=== PATIENT | male | born 1965 | race Caucasian/White ===

== ENCOUNTER 2020-12-25 09:14 | Emergency (ER) | payer SELFPAY ==
[2020-12-25 09:21] VITALS: BP 131/84; PULSE 82; RESP 16; TEMP 36.6; O2SAT 97; BMI 30.8
--- NOTE | 2020-12-25 12:09 | EDS_ITS ---
HPI History of Present Illness Chief Complaint: Fall Narrative Narrative: Patient is a 55-year-old male who states he was at work today when he was walking and tripped over a pallet that was on the ground. He states he fell from a standing position onto his right side. He reports striking his head but denies any loss of consciousness or blood thinner use. He states he sustained a abrasion/laceration to the upper eyelid/forehead region. He denies any other trauma and states there is been no sensitivity to light headache change in vision nausea or vomiting. However with the injury occurring at work he presents for evaluation [facility] Allergy/AdvReac Type Severity Reaction Status Date / Time No Known Allergies Allergy Verified 12/25/20 09:24 ROS ROS ED Constitutional Constitutional ED: Denies chills or fever(s) Eyes Eyes: Denies change in vision ENT ENT ED: Denies sore throat Cardiovascular Cardiovascular: Denies chest pain Respiratory/Chest Respiratory/Chest: Denies cough or dyspnea Gastrointestinal Gastrointestinal: Denies abdominal pain, diarrhea, nausea or vomiting Genitourinary Genitourinary ED: Denies dysuria Musculoskeletal Musculoskeletal: Denies myalgias Integumentary Reports Abrasions; Denies rash Neurologic Neurologic: Denies headache(s) Hematologic/Lymphatic Hematologic/Lymphatic: Denies easy bleeding or easy bruising EXAM Physical Exam Const Vital Signs: 12/25/20 09:21 Temperature 97.9 F Temperature Source Temporal Pulse Rate 82 Respiratory Rate 16 Blood Pressure 131/84 H Blood Pressure Mean 99 Pulse Ox 97 Oxygen Delivery Method Room Air Positive well nourished and well developed General Appearance ED: well developed HEENT Reports moist mucous membranes HEENT Narrative: Patient has soft tissue swelling to the right section of the forehead as well as the right side of the face/orbit. There is a linear 1.5 cm dermal layer laceration to the upper eyelid region with no active bleeding and no foreign body. Patient also has a superficial/dermal layer abrasion to the inner aspect of the right ear. Otherwise no signs of depressed or basilar skull fracture Eyes PERRL and EOMs intact bilaterally Neck supple Neck Narrative: No midline pain on palpation no bony deformity or step-off of the cervical spine Resp normal respiratory effort and clear to auscultation bilaterally Cardio regular rate and regular rhythm GI normal to inspection, nondistended, normoactive bowel sounds, non-tender and non-distended Auscultation: normoactive bowel sounds Palpation: soft Back/Spine Back/Spine Narrative: No bony deformity or step-off of the thoracic or lumbar spine no midline pain with palpation Extremity normal to inspection Neuro oriented x3 and CN's II-XII intact bilaterally Sensorium / Orientation: alert Psych mental status grossly normal Skin Skin Narrative: Soft tissue swelling with superficial abrasions/lacerations to the upper eyelid and right ear as documented above MDM MDM MDM Narrative Medical decision making narrative: Patient presented with a mechanical fall therefore there is no need for cardiac or syncopal work-up. I offered him a head CT based on the trauma and he states he does not want one at this time. The patient reports his tetanus status is under 5 years as well. The wounds are superficial in nature and therefore they were cleaned with chlorhexidine and then closed with Dermabond. On reevaluation patient has been resting comfortably and he has no change in neurologic status to suggest underlying brain bleed or signs concussion and therefore will be discharged at this time Discharge Plan Triage Chief Complaint: Fall ED Provider: Waqar Everett Dx/Rx/DC Orders Clinical Impression: Closed head injury, Facial laceration, Accidental fall Instructions: ED Laceration, Chin, Skin Glue Repair, ED Head Injury (Adult) Referrals: [facility] [GROUP OF PHYSICIANS] - Disposition Disposition: Home, Self Care
[2020-12-25 12:14] VITALS: RESP 18
[2020-12-25 12:30] VITALS: RESP 18
== END 2020-12-25 12:31 | disposition home or self-care (01) ==
LOC: ED 12:22
PROVIDERS: Emergency Provider Emergency Medicine
DX: S01.111A Laceration without foreign body of right eyelid and periocular area, initial encounter (principal); S00.411A Abrasion of right ear, initial encounter; W18.09XA Striking against other object with subsequent fall, initial encounter; Y93.01 Activity, walking, marching and hiking; Y92.9 Unspecified place or not applicable; Y99.0 Civilian activity done for income or pay
CPT/HCPCS: 12011; 99284

== ENCOUNTER 2022-07-18 08:18 | Emergency (ER) | payer OTHER, SELFPAY ==
[2022-07-18 08:20] VITALS: BP 126/81; PULSE 72; RESP 16; TEMP 35.7; O2SAT 100; BMI 30.9
--- NOTE | 2022-07-18 08:27 | CT_ITS ---
STUDY: CT BRAIN WITHOUT CONTRAST REASON FOR EXAM: Male, 57 years old. Injury. Altered mental status. RADIATION DOSAGE (If Supplied By Facility): CTDIvol = ( 44.99 ) mGy, DLP = ( 863.60 ) mGycm TECHNIQUE: Transaxial CT imaging of the brain was performed without administration of intravenous contrast material. Individualized dose optimization techniques were used for this CT. COMPARISON: None. FINDINGS: There is no acute bleed or infarct. There are normal white matter tracts. The ventricles are normal in configuration. There is no hydrocephalus. The visualized paranasal sinuses are clear. The mastoid air cells are well aerated. There is no skull fracture. CT/Brain/Head without Contrast IMPRESSION: No acute intracranial abnormality. Electronically Signed: Lai Be MD at 10:01 EDT ,
--- NOTE | 2022-07-18 08:29 | EX.ED.GENINJ ---
HPI History of Present Illness Chief Complaint: Fall Detail of Chief Complaint: Fall with injury to right parietal and lateral right orbit Informant: patient and EMS Onset/Context/Timing Onset: Today Mechanism/Context: Fall Location: Inferior right brow laterally and right parietal area Current Severity: Read HPI narrative Maximum Severity: Documented HPI narrative Worsened by: Admits to alcohol use Relieved by: Not applicable Associated Symptoms Associated Symptoms: Negative for Parasthesias, Weakness, Loss of function, Inability to ambulate, Loss of consciousness or Amnesia Narrative Narrative: Patient is a 57-year-old male. He is not a reliable informant. Reportedly he was checking into the [employer] hotel when he fell. He struck his head against a counter. Verified that he did fall checking into the hotel. Apparently this is his normal weekend routine. Patient states he finished work yesterday at 4. He is covered with grass stains and black lisa on his jeans and on his legs. His socks and shoes are soaked. Patient states this is not abnormal. He does admit to drinking. Last tetanus is unknown. He does complain of head pain but not headache per se. He denies change in vision. [place] ringing's ears. He denies dental pain or teeth being malaligned. He denies neck pain. He denies abdominal pain or low back pain. He denies extremity pain. Tetanus Immunization: Unknown Prior similar symptoms: No Recent Illness/Hospitalization: No PFSH PFSH Medical History no medical history no medical history Allergy/AdvReac Type Severity Reaction Status Date / Time No Known Allergies Allergy Verified 07/18/22 08:19 Surgical History no surgical history no surgical history Social History (Updated 07/18/22 @ 08:[address] Jax Jolley MD) household members: other housing: other details: Patient apparently lives in [place]. He states he does live with someon Smoking Status: Unknown if ever smoked alcohol intake: current details: Mitts to drinking last evening. substance use type: does not use ROS ROS ED Review of Systems ROS Unobtainable: due to mental status Constitutional Constitutional ED: Denies fever(s) or weight loss Eyes Eyes: Denies blurry vision or change in vision Cardiovascular Cardiovascular: Denies chest pain Respiratory/Chest Respiratory/Chest: Denies cough or dyspnea Gastrointestinal Gastrointestinal: Denies abdominal pain or vomiting Musculoskeletal Musculoskeletal: Denies back pain or neck pain Integumentary Reports other Details: Wound to the right side of his head and face. Neurologic Neurologic: Denies headache(s), paresthesias or weakness Hematologic/Lymphatic Hematologic/Lymphatic: Denies easy bleeding or easy bruising EXAM Physical Exam Const Vital Signs: 07/18/22 08:20 07/18/22 09:10 07/18/22 10:22 Temperature 96.3 F L Temperature Source Temporal Pulse Rate 72 80 Respiratory Rate 16 15 Respiratory Effort Normal Non-Labored Respiratory Depth Normal Respiratory Pattern Normal Blood Pressure 126/81 H 133/85 H Blood Pressure Mean 96 101 Pulse Ox 100 96 Oxygen Delivery Method Room Air Room Air Room Air Positive well nourished, well developed and unkempt Constitutional Narrative: Patient's T-shirt is covered in a fine black material. Patient's jeans are saturated from the knees down with grass stains and black smoke . Shoes are saturated as well as his socks. General Appearance ED: unkempt and well developed HEENT Reports TM's clear HEENT Narrative: Laceration curvilinear right parietal area and laceration near the lateral aspect of the right brow. trauma; Negative for atraumatic Nose: Negative for septum abnormal Tympanic Membrane ED: Yes TM's clear Throat: other Other Details: No clinical findings of basilar skull fracture. Eyes PERRL and EOMs intact bilaterally General Eye ED: Yes other Other Details: There is no conjunctival hemorrhage. There is no nystagmus with central gaze. Neck full ROM Neck Narrative: Trachea is midline. There is no crepitus. There is no stridor. General: Negative for tenderness Chest Wall inspection of chest normal and palpation of chest normal Resp normal respiratory effort and clear to auscultation bilaterally Cardio regular rhythm, S1 normal heart sound, S2 normal heart sound and no murmurs Rate: regular rate GI normal to inspection, nondistended, normoactive bowel sounds, non-tender, non-distended and no masses GI Narrative: There is no tenderness right upper or left upper quadrant. There is no tenderness over the pelvis. There is no hepatosplenomegaly. Back/Spine normal to inspection and no thoracic nor lumbar tenderness Extremity full ROM Extremity Narrative: Patient has evidence of trench foot. There is no neurovascular compromise. Neuro oriented x3, CN's II-XII intact bilaterally, moves all extremities, no focal motor deficits and no sensory deficits noted Neuro Narrative: Patient does not appear appropriate. [place] Coma Scale: document GCS findings Spontaneous Obeys Commands Oriented 15 Sensorium / Orientation: Negative for alert Plantar Reflex: Downgoing: right and Equivocal: left Psych Negative for mental status grossly normal or thought process normal Psych Narrative: This is uncertain whether this is due to patient drinking, being out in the cold or closed head injury. Appearance: unkempt Skin Skin Narrative: Right parietal area and lateral and inferior right brow. There is no palpable depression under the scalp laceration. Trauma: Negative for abrasion PROC Procedures Other Procedures Procedure(s): 1 scalp laceration measures 2.5 cm. The wound was anesthetized with 1% lidocaine by local infiltration. 1.5 cc was infiltrated. The wound was irrigated with 150 cc of normal saline. The wound was closed using staple gun. A total of 4 raciel was placed. 2. The facial laceration was anesthetized by local infiltration. A total of 0.5 cc of 1% lidocaine was infiltrated. Wound was irrigated with 100 cc of normal saline. Using 6-0 Ethilon 3 simple interrupted sutures was placed. Patient tolerated procedure. He was informed of his results. MDM MDM MDM Narrative Medical decision making narrative: Patient's answers are not totally appropriate. With history of head injury and alcohol use will obtain CT of the head looking for intracranial bleed. We will obtain an alcohol level. We will also obtain CBC and comprehensive metabolic panel determine if there is a metabolic or potential infectious cause. Tetanus was updated. The wounds will need repair. Will await results/review of CAT scan prior to closure. History & Record Review Discussion w/independent historian: EMS personnel and Patient Additional record(s) reviewed:: Prior ED visit (Patient was seen approximately 2 years ago for accidental fall. There are no labs for review. Patient does not visit a doctor and is presently on no meds.) Lab Data Attestation: I reviewed the patient's lab results. Lab results narrative: CBC reveals macrocytic anemia. Comprehensive metabolic panel remarkable for hyponatremia and hypokalemia. Alcohol level is 229. The electrogram may be due to his chronic alcohol use. Will obtain urine and serum osmolarity to evaluate for SIADH you old records. There are no old labs available for review. Patient's alcohol return to 229 which may be reason for his abnormal behavior and difficulty ambulating. Labs: Laboratory Results - last 24 hr 07/18/22 07/18/22 07/18/22 09:03 09:03 09:03 WBC 8.3 RBC 3.15 L Hgb 10.2 L Hct 30.0 L MCV 95.2 H MCH 32.4 H MCHC 34.0 RDW Std Deviation 43.4 RDW Coeff of Melquiades 12.4 Plt Count 102 L MPV 10.8 Immature Gran % (Auto) 0.700 Neut % (Auto) 80.3 H Lymph % (Auto) 10.1 L Cabell % (Auto) 7.7 Eos % (Auto) 0.4 Baso % (Auto) 0.8 Absolute Neuts (auto) 6.7 Absolute Lymphs (auto) 0.84 Nucleated RBC % 0 Sodium 125 L Potassium 2.9 L Chloride 90 L Carbon Dioxide 22.0 Anion Gap 13 BUN 23 H Creatinine 0.64 L Estim Creat Clear Calc 133.07 Est GFR (MDRD) Af Amer 167 Est GFR (MDRD) Non-Af 138 BUN/Creatinine Ratio 36.1 H Glucose 101 Serum Osmolality Calcium 8.8 Total Bilirubin 1.10 H AST 69 H ALT 44 Alkaline Phosphatase 53 Total Protein 7.6 Albumin 3.7 Globulin 3.9 Albumin/Globulin Ratio 0.9 Urine Osmolality Ethyl Alcohol 229.0 07/18/22 07/18/22 09:03 10:46 WBC RBC Hgb Hct MCV MCH MCHC RDW Std Deviation RDW Coeff of Melquiades Plt Count MPV Immature Gran % (Auto) Neut % (Auto) Lymph % (Auto) Cabell % (Auto) Eos % (Auto) Baso % (Auto) Absolute Neuts (auto) Absolute Lymphs (auto) Nucleated RBC % Sodium Potassium Chloride Carbon Dioxide Anion Gap BUN Creatinine Estim Creat Clear Calc Est GFR (MDRD) Af Amer Est GFR (MDRD) Non-Af BUN/Creatinine Ratio Glucose Serum Osmolality 321 H Calcium Total Bilirubin AST ALT Alkaline Phosphatase Total Protein Albumin Globulin Albumin/Globulin Ratio Urine Osmolality 383 Ethyl Alcohol Radiography Diagnostic Testing: Clinical Impression(s) from Imaging Studies Brain CT 07/18/22 08:27 IMPRESSION: No acute intracranial abnormality. Electronically Signed: Lai Be MD at 10:01 EDT , The CT was reviewed by me. Agree there is no evidence of intracranial bleed or fracture. Rhythm Strip Rhythm Strip: Sinus Rhythm Rate: 75 Ectopy: None Discharge Plan Triage Chief Complaint: Fall ED Provider: Jax Jolley Dx/Rx/DC Orders Clinical Impression: Closed head injury with concussion, Acute alcoholic intoxication in alcoholism (blood level 0.08-0.29), Acute alteration in mental status, Laceration of scalp, Face lacerations, Elevated blood pressure reading, Acute hyponatremia, Acute hypokalemia Instructions: ED Head Injury (Adult), ED Hypertension, To Be Confirmed, ED Hyponatremia, ED Hypokalemia, ED FACIAL LACERATION Suture Tape, ED Laceration Scalp Stitches or [place] Primary Care Provider: Care Physician,No Primary Referrals: Enid Hayward [Non-Staff] - 3-5 Days suture removal Care Physician,No Primary [Primary Care Provider] - Activity Restrictions/Additional Instructions: Facial laceration out in 5 days. Staple removal 10 days [facility] since she did not have have for his physician. You need your blood pressure rechecked in 1 to 2 weeks Disposition Disposition: Home, Self Care
[2022-07-18] MEDS: Diphth,Pertuss(Acell),Tet Vac 0.5 ML Vial IM (09:16)
[2022-07-18 09:25] LABS: Absolute Lymphocyte Count 0.84 X10^3/uL (0.83-4.51); Absolute Neutrophil Count 6.7 X10^3/uL (2.0-7.7); Basophil# 0.07 X10^3/uL; Basophil% 0.8 % (0-1); Eosinophil# 0.03 X10^3/uL; Eosinophils% 0.4 % (0-5); Hemoglobin 10.2 g/dL (13.0-16.5); Lymphocyte # 0.84 X10^3/ul (0.83-4.51); Lymphocyte % 10.1 % (19-41); Mean Corpuscular Hgb 32.4 pg (27.0-32.0); Mean Corpuscular Volume 95.2 fL (80-94); Mean Platelet Vol. 10.8 fl (6.2-12.0); Monocyte# 0.64 X10^3/uL; Monocyte% 7.7 % (0-10); NRBC Flagged by Analyzer 0 % (0-5); Neutrophil # 6.68 X10^3/uL (2.7-7.7); Neutrophil % 80.3 % (47-70); Platelet Count 102 K/mm3 (150-450); RBC Distribution Width CV 12.4 % (11.6-14.6); RBC Distribution Width SD 43.4 fl (35.1-43.9); Red Blood Count 3.15 M/mm3 (4.6-6.2); White Blood Count 8.3 K/mm3 (4.4-11.0)
[2022-07-18 09:40] LABS: ALB/GLOB Ratio 0.9 RATIO (0.9-2.4); AST(SGOT) 69 U/L (15-37); Alanine Aminotransfer ALT/SGPT 44 U/L (16-61); Albumin, Serum 3.7 g/dL (3.2-5.0); Alkaline Phosphatase 53 U/L (45-117); Anion Gap 13 (5-15); BUN 23 mg/dL (7-18); BUN/Creat Ratio 36.1 RATIO (10-20); Calcium,Total 8.8 mg/dL (8.5-10.1); Chloride 90 mmol/L (98-107); Creatinine, Serum 0.64 mg/dL (0.70-1.30); EST Glomerular Filtration Rate 138 mL/min (>60); Est Glom Filt Rate - Afr Amer 167 mL/min (>60); Estimated Creatinine Clearance 133.07 ml/min; Globulin 3.9 g/dL (2.2-4.2); Glucose 101 mg/dL (74-106); Potassium 2.9 mmol/L (3.5-5.1); Protein, Total 7.6 g/dL (6.4-8.2); Sodium Level 125 mmol/L (136-145)
[2022-07-18 10:22] VITALS: BP 133/85; PULSE 80; RESP 15; O2SAT 96
[2022-07-18 11:07] LABS: Osmolality, Urine 383 mOsm/KG
[2022-07-18 11:07] LABS: Osmolality, Serum 321 mOsm/KG (275-295)
--- NOTE | 2022-07-18 12:13 | ED.RN ---
PT NIECE CONTACTED FOR A RIDE HOME. REPORTS SHE WILL BE UP.
[2022-07-18] MEDS: Lidocaine 1% (20 ml mdv) 20 ML Vial INFILT (12:26)
[2022-07-18 12:30] VITALS: BP 133/85; PULSE 90; RESP 18; O2SAT 96
== END 2022-07-18 12:32 | disposition home or self-care (01) ==
PROVIDERS: Emergency Provider Emergency Medicine; Visit Provider Emergency Medicine
DX: S01.81XA Laceration without foreign body of other part of head, initial encounter (principal); F10.229 Alcohol dependence with intoxication, unspecified; S06.0X0A Concussion without loss of consciousness, initial encounter; S01.01XA Laceration without foreign body of scalp, initial encounter; E87.1 Hypo-osmolality and hyponatremia; E87.6 Hypokalemia; R03.0 Elevated blood-pressure reading, without diagnosis of hypertension; W19.XXXA Unspecified fall, initial encounter; Z23 Encounter for immunization
CPT/HCPCS: 12001; 70450; 80053; 82077; 83930; 83935; 85025; 90715; 99285; A4216

== ENCOUNTER 2022-07-29 06:24 | Emergency (ER) | payer OTHER, SELFPAY ==
[2022-07-29 06:26] VITALS: BP 133/88; PULSE 77; RESP 18; TEMP 36.8; O2SAT 99; BMI 28.9
--- NOTE | 2022-07-29 06:37 | CT_ITS ---
EXAM: CT CERVICAL SPINE WITHOUT INTRAVENOUS CONTRAST CLINICAL INDICATION: trauma TECHNIQUE: Helically acquired images were obtained of the cervical spine without intravenous contrast. 2D reformatted images were reviewed. This CT exam was performed using one or more of the following dose reduction techniques: automated exposure control, adjustment of the mA and/or kV according to patient size, and/or use of iterative reconstruction technique. This report was created using LiveLoop report generation technology. RADIATION DOSE: CTDIvol = 20.04 mGy, DLP = 428.74 mGy-cm. COMPARISON: None. FINDINGS: VERTEBRAE: Moderate multilevel bilateral vertebral facet arthropathy. No fracture. No traumatic subluxation. No discrete lytic or blastic abnormality. Normal alignment. Normal craniocervical junction and cervicothoracic junction. DISCS/SPINAL CANAL/NEURAL FORAMINA: Moderate multilevel degenerative disc disease. No critical stenosis. SOFT TISSUES: Unremarkable. No prevertebral soft tissue swelling. LYMPH NODES: Unremarkable. No cervical adenopathy. LUNG APICES: Unremarkable as visualized. Clear. CT/Spine Cervical without Contras IMPRESSION: Moderate degenerative changes. No acute fractures or subluxations. Electronically Signed: Carl Santamaria MD at 7:20 EDT ,
--- NOTE | 2022-07-29 06:37 | RAD_ITS ---
EXAM: XR CHEST, 1 VIEW CLINICAL INDICATION: fall/weakness TECHNIQUE: Frontal view of the chest. This report was created using Tickade report generation technology. COMPARISON: None. FINDINGS: LUNGS AND PLEURAL SPACES: Unremarkable. No consolidation or edema. No pneumothorax. No effusion. HEART: Unremarkable. Cardiac silhouette not enlarged. MEDIASTINUM: Central airways and mediastinal contour are unremarkable. BONES/JOINTS: Unremarkable. SOFT TISSUES: Unremarkable. RAD/Chest 1 View IMPRESSION: No radiographic evidence of acute cardiopulmonary disease. Electronically Signed: Carl Santamaria MD at 7:29 EDT ,
--- NOTE | 2022-07-29 06:37 | EKG12_ITS ---
Test Reason : NUMB/TINGLING Blood Pressure : / mmHG Vent. Rate : 070 BPM Atrial Rate : 070 BPM P-R Int : 168 ms QRS Dur : 102 ms QT Int : 422 ms P-R-T Axes : 036 043 049 degrees QTc Int : 455 ms Normal sinus rhythm Septal infarct , age undetermined Abnormal ECG Confirmed by GENARO CERNA ([id number]), newspaper editor managing BOWEN MEJÍA ([id number]) on 08/03/2022 7:33:50 AM Referred By: RICHELLE Confirmed By:GENARO CERNA
--- NOTE | 2022-07-29 06:37 | CT_ITS ---
EXAM: CT HEAD WITHOUT INTRAVENOUS CONTRAST CLINICAL INDICATION: head trauma TECHNIQUE: Multiple axial images were obtained of the head without intravenous contrast. This CT exam was performed using one or more of the following dose reduction techniques: automated exposure control, adjustment of the mA and/or kV according to patient size, and/or use of iterative reconstruction technique. This report was created using [employer] report generation technology. RADIATION DOSE: CTDIvol = 47.06 mGy, DLP = 890.33 mGy-cm. COMPARISON: 07/18/2022. FINDINGS: BRAIN AND EXTRA-AXIAL SPACES: Unremarkable. No intra- or extra-axial hemorrhage. No evidence of acute infarct. No intracranial mass or mass effect. There is preservation of the buckley/white matter interface. Posterior fossa structures are unremarkable. Ventricles are appropriate for age. No hydrocephalus. Basal cisterns are patent. BONES/JOINTS: Unremarkable. No discrete lytic or blastic abnormalities. SINUSES: Unremarkable as visualized. Clear. MASTOID AIR CELLS: Unremarkable. Clear. ORBITS: Visualized globes, extraocular muscles, optic nerves and retrobulbar fat appear unremarkable. OTHER FINDINGS: Moderate generalized atrophy unchanged since previous exam. CT/Brain/Head without Contrast IMPRESSION: Moderate generalized atrophy unchanged since previous exam. No acute abnormality. Electronically Signed: Carl Santamaria MD at 7:18 EDT ,
--- NOTE | 2022-07-29 06:39 | RAD_ITS ---
EXAM: XR LEFT KNEE COMPLETE, 4 OR MORE VIEWS CLINICAL INDICATION: pain TECHNIQUE: Four or more views of the left knee. This report was created using [employer] report generation technology. COMPARISON: None. FINDINGS: BONES/JOINTS: Unremarkable. No acute fracture. No subluxation. Normal alignment. Preservation of the joint space. No sclerotic or destructive changes observed. SOFT TISSUES: Unremarkable. No soft tissue swelling or gas. No radiopaque foreign body. RAD/Knee 4 or More Views IMPRESSION: Negative left knee x-rays. Electronically Signed: Carl Santamaria MD at 7:30 EDT ,
--- NOTE | 2022-07-29 06:39 | RAD_ITS ---
EXAM: XR LEFT FEMUR, 2 VIEWS CLINICAL INDICATION: pain TECHNIQUE: Frontal and lateral views of the left femur. This report was created using Elation[employer] report generation technology. COMPARISON: None. FINDINGS: BONES/JOINTS: Unremarkable. No acute fracture. No subluxation. Normal alignment. Preservation of the joint space. No sclerotic or destructive changes observed. SOFT TISSUES: Unremarkable. No soft tissue swelling or gas. No radiopaque foreign body. RAD/Femur Min 2 Views IMPRESSION: Negative left femur x-rays. Electronically Signed: Carl Santamaria MD at 7:29 EDT ,
--- NOTE | 2022-07-29 06:39 | EX.ED.DYSGE1 ---
HPI History of Present Illness Chief Complaint: Numb/Ting Narrative Narrative: 57-year-old male presenting after a fall. He states he was walking into his shop and his legs went numb acutely and he fell to the ground striking his left leg. He states his left leg hurts so bad that he could not get up and walk. He denies chest pain or shortness of breath. He does not complain of any dizziness or lightheadedness. Patient did hit his head in the occiput and had some minor bleeding. Denies neck pain. He states he does not have any medical problems, but he also has not been to a doctor in a very long time. Patient does chew tobacco but does not smoke cigarettes. He states he drinks alcohol sometimes. PFSH [facility] Medical History ACL (anterior cruciate ligament) rupture Home Medications NK 07/29/22 [History Last Taken Unknown] Allergy/AdvReac Type Severity Reaction Status Date / Time No Known Allergies Allergy Verified 07/29/22 06:36 Social History household members: other housing: other details: Patient apparently lives in [place]. He states he does live with some Smoking Status: Never smoker alcohol intake: current details: Mitts to drinking last evening. substance use type: does not use ROS ROS ED Constitutional Constitutional ED: Denies chills or fever(s) Eyes Eyes: Denies change in vision or diplopia ENT ENT ED: Denies rhinorrhea or sore throat Cardiovascular Cardiovascular: Denies chest pain or palpitations Respiratory/Chest Respiratory/Chest: Denies cough or dyspnea Gastrointestinal Gastrointestinal: Denies abdominal pain Genitourinary Genitourinary ED: Denies dysuria or hematuria Musculoskeletal Musculoskeletal: Reports other Details: Left leg pain Neurologic Neurologic: Denies headache(s) or paresthesias Psychiatric Psychiatric: Denies anxiety or depression Endocrine Endocrinology: Denies cold intolerance EXAM Physical Exam Const Vital Signs: 07/29/22 06:26 07/29/22 07:39 07/29/22 07:48 Temperature 98.2 F Temperature Source Temporal Pulse Rate 77 69 Pulse Rate [Lying] 75 Pulse Rate [Sitting (for 1 minute prior to obtaining)] 72 Pulse Rate [Standing (for 1 minute prior to obtaining)] 79 Respiratory Rate 18 18 Blood Pressure 133/88 H 133/81 H Blood Pressure [Lying] 132/77 H Blood Pressure [Sitting (for 1 minute prior to obtaining)] 131/90 H Blood Pressure [Standing (for 1 minute prior to obtaining)] 117/78 Blood Pressure Mean 103 98 Blood Pressure Mean [Lying] 95 Blood Pressure Mean [Sitting (for 1 minute prior to obtaining)] 103 Blood Pressure Mean [Standing (for 1 minute prior to obtaining)] 91 Pulse Ox 99 100 Oxygen Delivery Method Room Air Room Air Positive well nourished and unkempt General Appearance ED: unkempt and NAD; Negative for pallor HEENT HEENT Narrative: Superficial laceration to the occiput. No active bleeding or skull deformity. Eyes PERRL and EOMs intact bilaterally Neck no lymphadenopathy Resp normal respiratory effort and clear to auscultation bilaterally Auscultation: Negative for rales, rhonchi or wheezes Cardio regular rate Extremity Extremity Narrative: Tenderness to palpation diffusely over the entire left leg. There is only notable contusion to the left patella. Patient is able to range the left knee. He is able to flex his hip off of the bed and bend his knee without difficulty. Patient is not tender in the ankle or foot. Neuro oriented x3 and CN's II-XII intact bilaterally Sensorium / Orientation: alert Motor Exam: strength 5/5 throughout Psych Psych Narrative: Appears intoxicated Appearance: unkempt Skin General Skin Exam: Negative for jaundice or pallor MDM MDM MDM Narrative Medical decision making narrative: Patient presenting with what he describes as leg numbness but his legs are numb. What he is describing to me is that his legs got weak and he fell to the floor striking his left leg and his head. He denies LOC. Review of the medical record shows that he has a history of hyponatremia and hypokalemia as well as alcohol use. Differential includes near syncope/syncope, anemia, hyponatremia, hypokalemia, dehydration, arrhythmia, alcohol intoxication. Since the patient fell and hit his head but also includes intracranial hemorrhage, concussion, scalp laceration. CBC to assess white blood cell count, hemoglobin, platelets, differential. CMP to assess liver function, renal function, electrolytes, anion gap. EKG to assess for arrhythmia. High-sensitivity troponin and chest x-ray will also be obtained. X-rays of the left femur, left knee, left tib-fib will be obtained because the patient is complaining of diffuse pain although he is moving his leg without any difficulty. EtOH will be obtained because the patient seems to be intoxicated. CBC shows a leukopenia with a white blood cell count 2.9, hemoglobin 9.8, platelets 170. Patient slightly lymphopenic as well. Sodium 129, potassium 3.5. Renal function is normal. AST slightly elevated at 125 otherwise his bilirubin and ALT as well as alkaline phosphatase are normal. High-sensitivity troponin is 6. Chest x-ray on my interpretation shows no acute cardiopulmonary process. CT of the brain and the cervical spine interpreted by the radiologist and reviewed by myself as negative for acute fracture or intracranial hemorrhage. The patient EKG is sinus rhythm at a ventricular rate of 70 bpm without signs of ectopy or ischemia. X-rays of the left femur, left knee, left tib-fib on my interpretation show no acute fracture. The patient's alcohol level came back at 364. I explained to the patient that I felt he was intoxicated and likely that is the reason why he fell to the ground. He states I am not drunk. I asked him when the last time he drank was and he said last night. I told him technically he is intoxicated and at this alcohol level he should be in a coma. He states he drinks every day. He has been doing so since he is 14 years old. I offered him detox. He declined. His orthostatics were positive and he was symptomatic so I did order him a liter of normal saline. I counseled him that he will need to call for a sober ride. Patient had COVID and influenza pending. Impression: 1. Fall 2. EtOH intoxication 3. Left leg contusion 4. Closed head injury 5. Superficial scalp laceration 6. Orthostatic hypotension Lab Data Labs: Laboratory Results - last 24 hr 07/29/22 07/29/22 07/29/22 06:46 06:46 06:46 WBC 2.9 L RBC 3.12 L Hgb 9.8 L Hct 30.6 L MCV 98.1 H MCH 31.4 MCHC 32.0 RDW Std Deviation 46.3 H RDW Coeff of Melquiades 12.9 Plt Count 170 MPV 8.8 Immature Gran % (Auto) 0.700 Neut % (Auto) 61.3 Lymph % (Auto) 23.2 [place] % (Auto) 11.9 H Eos % (Auto) 1.1 Baso % (Auto) 1.8 H Absolute Neuts (auto) 1.8 L Absolute Lymphs (auto) 0.66 L Nucleated RBC % 0 Sodium 129 L Potassium 3.5 Chloride 93 L Carbon Dioxide 24.0 Anion Gap 12 BUN 5 L Creatinine 0.73 Estim Creat Clear Calc 116.67 Est GFR (MDRD) Af Amer 144 Est GFR (MDRD) Non-Af 119 BUN/Creatinine Ratio 6.9 L Glucose 112 H Calcium 8.5 Total Bilirubin 0.60 AST 125 H ALT 57 Alkaline Phosphatase 68 Troponin I High Sens 6 Total Protein 7.6 Albumin 3.8 Globulin 3.8 Albumin/Globulin Ratio 1.0 Ethyl Alcohol 364.0 H* Radiography Diagnostic Testing: Clinical Impression(s) from Imaging Studies Brain CT 07/29/22 06:37 IMPRESSION: Moderate generalized atrophy unchanged since previous exam. No acute abnormality. Electronically Signed: Carl Santamaria MD at 7:18 EDT Reading Location ID and State: [place] / [employer] , Service support , Cervical Spine CT 07/29/22 06:37 IMPRESSION: Moderate degenerative changes. No acute fractures or subluxations. Electronically Signed: Carl Santamaria MD at 7:20 EDT Reading Location ID and State: [employer] / [employer] , Service support , Chest X-Ray 07/29/22 06:37 IMPRESSION: No radiographic evidence of acute cardiopulmonary disease. Electronically Signed: Carl Santamaria MD at 7:29 EDT Reading Location ID and State: [email or web address] / [employer] , Service support , Femur X-Ray 07/29/22 06:39 IMPRESSION: Negative left femur x-rays. Electronically Signed: Carl Santamaria MD at 7:29 EDT Reading Location ID and State: [employer] / [employer] , Service support , Knee X-Ray 07/29/22 06:39 IMPRESSION: Negative left knee x-rays. Electronically Signed: Carl Santamaria MD at 7:30 EDT , Tibia/Fibula X-Ray 07/29/22 06:40 IMPRESSION: Negative left tibia and fibula x-rays. Electronically Signed: Carl Santamaria MD at 7:30 EDT , Discharge Plan Triage Chief Complaint: Numb/Ting ED Provider: Conor Valdez Dx/Rx/DC Orders Clinical Impression: Acute alcoholic intoxication in alcoholism (blood level over 0.3) Instructions: Alcohol Addiction, ED Contusion, Lower Extremity, ED Alcohol Intoxication, ED Hypotension, Orthostatic, ED Laceration Small or ... Prescriptions: No Action NK Primary Care Provider: Care Physician,No Primary Referrals: Janeth Mart MD [Med Staff - Production Engineer Track] - 3-5 Days Care Physician,No Primary [Primary Care Provider] - Disposition Disposition: Home, Self Care
--- NOTE | 2022-07-29 06:40 | RAD_ITS ---
EXAM: XR LEFT TIBIA AND FIBULA, 2 VIEWS CLINICAL INDICATION: pain TECHNIQUE: Frontal and lateral views of the left tibia and fibula. This report was created using light report generation technology. COMPARISON: None. FINDINGS: BONES/JOINTS: Unremarkable. No acute fracture. No subluxation. Normal alignment. Preservation of the joint space. No sclerotic or destructive changes observed. SOFT TISSUES: Unremarkable. No soft tissue swelling or gas. No radiopaque foreign body. RAD/Tibia & Fibula 2 Views IMPRESSION: Negative left tibia and fibula x-rays. Electronically Signed: Carl Santamaria MD at 7:30 EDT ,
[2022-07-29 06:55] LABS: Absolute Lymphocyte Count 0.66 X10^3/uL (0.83-4.51); Absolute Neutrophil Count 1.8 X10^3/uL (2.0-7.7); Basophil# 0.05 X10^3/uL; Basophil% 1.8 % (0-1); Eosinophil# 0.03 X10^3/uL; Eosinophils% 1.1 % (0-5); Hematocrit 30.6 % (40-54); Hemoglobin 9.8 g/dL (13.0-16.5); Lymphocyte # 0.66 X10^3/ul (0.83-4.51); Lymphocyte % 23.2 % (19-41); Mean Corpuscular Hgb 31.4 pg (27.0-32.0); Mean Corpuscular Volume 98.1 fL (80-94); Mean Platelet Vol. 8.8 fl (6.2-12.0); Monocyte# 0.34 X10^3/uL; Monocyte% 11.9 % (0-10); NRBC Flagged by Analyzer 0 % (0-5); Neutrophil # 1.75 X10^3/uL (2.7-7.7); Neutrophil % 61.3 % (47-70); Platelet Count 170 K/mm3 (150-450); RBC Distribution Width CV 12.9 % (11.6-14.6); RBC Distribution Width SD 46.3 fl (35.1-43.9); Red Blood Count 3.12 M/mm3 (4.6-6.2); White Blood Count 2.9 K/mm3 (4.4-11.0)
[2022-07-29 07:14] LABS: AST(SGOT) 125 U/L (15-37); Alanine Aminotransfer ALT/SGPT 57 U/L (16-61); Albumin, Serum 3.8 g/dL (3.2-5.0); Alkaline Phosphatase 68 U/L (45-117); Anion Gap 12 (5-15); BUN 5 mg/dL (7-18); BUN/Creat Ratio 6.9 RATIO (10-20); Calcium,Total 8.5 mg/dL (8.5-10.1); Chloride 93 mmol/L (98-107); Creatinine, Serum 0.73 mg/dL (0.70-1.30); EST Glomerular Filtration Rate 119 mL/min (>60); Est Glom Filt Rate - Afr Amer 144 mL/min (>60); Estimated Creatinine Clearance 116.67 ml/min; Globulin 3.8 g/dL (2.2-4.2); Glucose 112 mg/dL (74-106); Potassium 3.5 mmol/L (3.5-5.1); Protein, Total 7.6 g/dL (6.4-8.2); Sodium Level 129 mmol/L (136-145); Troponin-I HS 6 pg/mL (3.0-78.0)
[2022-07-29 07:39] VITALS: BP 117/78; BP 131/90; BP 132/77; PULSE 72; PULSE 75; PULSE 79
[2022-07-29 07:48] VITALS: BP 133/81; PULSE 69; RESP 18; O2SAT 100
[2022-07-29] MEDS: 0.9% Normal Saline 1,000 ML 999 ML IV (07:48)
--- NOTE | 2022-07-29 09:29 | ED.RN ---
pt up ambulating in room. steady. aware he needs a test driver to come pick him up
[2022-07-29 09:59] VITALS: PULSE 70; RESP 18; O2SAT 99
--- NOTE | 2022-07-29 10:02 | ED.RN ---
PATIENT'S NIECE SUNI CALLED FOR A RIDE. SUNI WILL BE HERE SOON.
== END 2022-07-29 10:03 | disposition home or self-care (01) ==
PROVIDERS: Emergency Provider Student in an Organized Health Care Education/Training Program; Visit Provider Student in an Organized Health Care Education/Training Program
DX: F10.229 Alcohol dependence with intoxication, unspecified (principal); S80.12XA Contusion of left lower leg, initial encounter; S01.01XA Laceration without foreign body of scalp, initial encounter; S09.90XA Unspecified injury of head, initial encounter; I95.1 Orthostatic hypotension; W19.XXXA Unspecified fall, initial encounter
CPT/HCPCS: 70450; 71045; 72125; 73552; 73564; 73590; 80053; 82077; 84484; 85025; 87428; 93005; 96360; 96361; 99285; J7030; A4216